=== PATIENT | male | born 1955 | race Caucasian/White ===

== ENCOUNTER 2017-11-23 08:28 | Emergency (ER) | payer MEDICAID, OTHER ==
[2017-11-23 08:29] VITALS: BMI 29.9
[2017-11-23 08:43] VITALS: TEMP 98.1
[2017-11-23] MEDS ORDERED: Sodium Chloride 0.9% 1,000 ML IV SCH (09:00)
[2017-11-23] MEDS ORDERED: Sodium Chloride 0.9% 1,000 ML ONE (09:09)
[2017-11-23 09:24] LABS: BASO # 0.1 K/uL (0.0-0.2); BASO % 1.1 % (0.0-2.0); EOS # 0.1 K/uL (0.0-0.7); EOS % 2.4 % (0.0-4.0); HEMOGLOBIN 14.4 g/dL (12.0-18.0); LYMPH # 0.9 K/uL (1.0-4.3); LYMPH % 17.4 % (20.0-40.0); MEAN CELL VOLUME 88.1 fL (80.0-94.0); MEAN CORPUSCULAR HEMOGLOBIN 30.5 pg (27.0-31.0); MEAN CORPUSCULAR HGB CONC 34.5 g/dL (33.0-37.0); MEAN PLATELET VOLUME 9.8 fL (7.2-11.7); MONO # 0.4 K/uL (0.0-0.8); MONO % 7.5 % (0.0-10.0); NEUT # 3.8 K/uL (1.8-7.0); NEUT % 71.6 % (50.0-75.0); RBC 4.73 Mil/uL (4.40-5.90); RED CELL DISTRIBUTION WIDTH 14.3 % (11.5-14.5); WHITE BLOOD COUNT 5.3 K/uL (4.8-10.8)
[2017-11-23 09:37] LABS: ALBUMIN 3.8 g/dL (3.5-5.0); ALT/SGPT 35 U/L (21-72); AST/SGOT 25 U/L (17-59); BLOOD UREA NITROGEN 14 mg/dL (9-20); CALCIUM 8.8 mg/dl (8.6-10.4); GFR AFRICAN-AMERICAN > 60; GFR NON-AFRICAN AMERICAN > 60; HDL CHOLESTEROL 26 mg/dL (30-70)
--- NOTE | 2017-11-23 09:38 | CT ---
Date of service: 11/23/2017 PROCEDURE: CT HEAD WITHOUT CONTRAST. HISTORY: dizzy COMPARISON: 02/15/2013 TECHNIQUE: Axial computed tomography images were obtained through the head/brain without intravenous contrast. Radiation dose: Total exam DLP = 832.72 mGy-cm. This CT exam was performed using one or more of the following dose reduction techniques: Automated exposure control, adjustment of the mA and/or kV according to patient size, and/or use of iterative reconstruction technique. FINDINGS: HEMORRHAGE: No intracranial hemorrhage. BRAIN: No mass effect or edema. There is moderate to severe chronic periventricular white matter lucency markedly increased in extent when compared to the prior examination. This is likely the result of microvascular white matter ischemic change. There is no evidence of acute infarct. VENTRICLES: Unremarkable. No hydrocephalus. CALVARIUM: Unremarkable. PARANASAL SINUSES: Unremarkable as visualized. No significant inflammatory changes. MASTOID AIR CELLS: Unremarkable as visualized. No inflammatory changes. OTHER FINDINGS: None. IMPRESSION: No intracranial mass, hemorrhage or evidence of acute infarct. Moderate to severe chronic white matter ischemic change significantly increased in extent when compared to the prior examination. Otherwise unremarkable.
[2017-11-23 09:50] LABS: LDL CHOLESTEROL 76 mg/dL (0-129)
--- NOTE | 2017-11-23 10:58 | C.PDOC ---
History Of Present Illness 62-year-old male,presents to the emergency department with complaints of dizziness, described as room spinning, that started one month ago. Symptoms became more severe over the pas few days, prompting visit. Patient notes associated nausea, and states dizziness worsens with head movement. He denies headache, ear pain, fever, vomiting, chills, chest pain or any other associated symptoms. No other complaints at this time. Time Seen by Provider: 11/23/17 08:36 Chief Complaint (Nursing): Dizziness/Lightheaded History Per: Patient History/Exam Limitations: no limitations Past Medical History Reviewed: Historical Data, Nursing Documentation, Vital Signs Vital Signs: Last Vital Signs Temp 98.1 F 11/23/17 08:41 Pulse 86 11/23/17 11:06 Resp 18 11/23/17 11:06 BP 128/85 11/23/17 11:06 Pulse Ox 98 11/23/17 11:06 Family History: States: No Known Family Hx - Social History Hx Tobacco Use: Yes Hx Alcohol Use: No Hx Substance Use: No - Immunization History Hx Tetanus Toxoid Vaccination: No Hx Influenza Vaccination: No Hx Pneumococcal Vaccination: No Review Of Systems Constitutional: Negative for: Fever, Chills Cardiovascular: Negative for: Chest Pain Respiratory: Negative for: Shortness of Breath Gastrointestinal: Positive for: Nausea. Negative for: Vomiting Neurological: Positive for: Dizziness. Negative for: Weakness, Numbness, Altered Mental Status, Headache Physical Exam - Physical Exam Appears: Non-toxic, No Acute Distress Skin: Normal Color, Warm, Dry, No Rash Head: Atraumatic, Normacephalic Eye(s): bilateral: Normal Inspection, PERRL, EOMI Nose: Normal Oral Mucosa: Moist Lips: Normal Appearing Neck: Normal ROM Cardiovascular: Rhythm Regular, No Murmur Respiratory: Normal Breath Sounds, No Accessory Muscle Use Gastrointestinal/Abdominal: Soft, No Tenderness Back: Normal Inspection Extremity: Normal ROM, No Deformity Neurological/Psych: Oriented x3, Normal Speech ED Course And Treatment - Laboratory Results Result Diagrams: 11/23/17 09:18 11/23/17 09:18 O2 Sat by Pulse Oximetry: 97 (RA) Pulse Ox Interpretation: Normal Disposition Counseled Patient/Family Regarding: Studies Performed, Need For Followup, Rx Given - Disposition Referrals: [facility] [Outside] Disposition: HOME/ ROUTINE Disposition Time: 10:55 Condition: STABLE Prescriptions: Meclizine [Antivert] 25 mg PO Q6 #30 tab Instructions: Vertigo (a Type of Dizziness) Forms: Gen Discharge Inst Indian, [employer] Connect (Indian), Work Excuse - POA Present On Arrival: None - Clinical Impression Clinical Impression: Dizziness - Scribe Statement The provider has reviewed the documentation as recorded by the Scribe (Sallie Ibanez) All medical record entries made by the Scribe were at my direction and personally dictated by me. I have reviewed the chart and agree that the record accurately reflects my personal performance of the history, physical exam, medical decision making, and the department course for this patient. I have also personally directed, reviewed, and agree with the discharge instructions and disposition.
[2017-11-23 11:06] VITALS: BP 128/85; PULSE 86; RESP 18
[2017-11-23 12:55] VITALS: O2SAT 97
--- NOTE | 2017-11-24 17:52 | CARD ---
APPROVED REPORT Date of service: 11/23/2017 EKG Measurement Heart [id number] <Conclusion> Normal sinus rhythm Normal ECG
== END 2017-11-23 11:07 | disposition home or self-care (01) ==
LOC: C.ER 08:28
DX: R42 Dizziness and giddiness (principal)
CPT/HCPCS: 70450; 80053; 80061; 82948; 84484; 85025; 93005; 99285; J7030

== ENCOUNTER 2018-06-03 14:23 | Emergency (ER) | payer MEDICAID ==
[2018-06-03 14:24] VITALS: BMI 29.9
[2018-06-03 14:39] VITALS: RESP 18; O2SAT 95
--- NOTE | 2018-06-03 15:50 | CT ---
Date of service: 06/03/2018 PROCEDURE: CT HEAD WITHOUT CONTRAST. HISTORY: Headache, dizziness. COMPARISON: Noncontrast head CT performed 11/23/17 TECHNIQUE: Axial computed tomography images were obtained through the head/brain without intravenous contrast. Radiation dose: Total exam DLP = 958.09 mGy-cm. This CT exam was performed using one or more of the following dose reduction techniques: Automated exposure control, adjustment of the mA and/or kV according to patient size, and/or use of iterative reconstruction technique. FINDINGS: HEMORRHAGE: No intracranial hemorrhage. BRAIN: No mass effect or edema. Moderate to severe scattered periventricular and subcortical white matter hypodensities, which are nonspecific, but often seen with chronic microvascular ischemic disease. Please note that MRI with diffusion imaging is more sensitive in the detection of acute ischemic event. VENTRICLES: No hydrocephalus. CALVARIUM: Unremarkable. PARANASAL SINUSES: Unremarkable as visualized. No significant inflammatory changes. MASTOID AIR CELLS: Unremarkable as visualized. No inflammatory changes. OTHER FINDINGS: None. IMPRESSION: Moderate to severe scattered periventricular and subcortical white matter hypodensities, which are nonspecific, but often seen with chronic microvascular ischemic disease.
--- NOTE | 2018-06-03 15:59 | C.PDOC ---
History Of Present Illness Pt c/o left sided headache that radiates to left posterior neck. Associated with dizziness. Time Seen by Provider: 06/03/18 14:41 Chief Complaint (Nursing): Headache History Per: Patient Onset/Duration Of Symptoms: Days (more than a month), Gradual Current Symptoms Are (Timing): Still Present Severity: Moderate Associated Symptoms: denies: Photophobia, Blurred Vision, Nausea, Vomiting, Extremity Weakness Additional History Per: Prior Records Past Medical History Reviewed: Historical Data, Nursing Documentation, Vital Signs Vital Signs: Last Vital Signs Temp 98 F 06/03/18 14:34 Pulse 64 06/03/18 14:34 Resp 18 06/03/18 14:34 BP 98/72 L 06/03/18 14:34 Pulse Ox 95 06/03/18 14:34 - Medical History PMH: No Chronic Diseases Family History: States: Unknown Family Hx - Social History Hx Tobacco Use: Yes Hx Alcohol Use: No Hx Substance Use: No - Immunization History Hx Tetanus Toxoid Vaccination: No Hx Influenza Vaccination: No Hx Pneumococcal Vaccination: No Review Of Systems Except As Marked, All Systems Reviewed And Found Negative. Constitutional: Negative for: Fever, Weakness Eyes: Negative for: Vision Change ENT: Negative for: Ear Pain, Ear Discharge, Nose Congestion, Throat Pain Cardiovascular: Negative for: Chest Pain Respiratory: Negative for: Shortness of Breath Gastrointestinal: Negative for: Nausea, Vomiting, Abdominal Pain Musculoskeletal: Positive for: Neck Pain. Negative for: Back Pain Skin: Negative for: Rash Neurological: Positive for: Headache, Dizziness. Negative for: Weakness, Numb ness, Change in Speech, Confusion, Seizures, Altered Mental Status Physical Exam - Physical Exam Appears: Non-toxic, No Acute Distress Skin: Normal Color, Warm, Dry, No Rash Head: Atraumatic, Normacephalic Eye(s): bilateral: PERRL, EOMI Ear(s): Bilateral: Normal Neck: Normal ROM, No Midline Cervical Tenderness, Paracervical Tenderness (left), No Step Off Deformity, Supple Cardiovascular: Rhythm Regular Respiratory: Normal Breath Sounds, No Accessory Muscle Use Gastrointestinal/Abdominal: Soft, No Tenderness Extremity: Normal ROM, No Deformity Pulses: Left Radial: Normal, Right Radial: Normal Neurological/Psych: Oriented x3, Normal Speech, Normal Cognition, Normal Cranial Nerves, No Cerebellar Signs, Normal Motor, Normal Sensation ED Course And Treatment O2 Sat by Pulse Oximetry: 95 Pulse Ox Interpretation: Normal - CT Scan/US CT head Other Rad Studies (CT/US): Read By Radiologist, Radiology Report Reviewed CT/US Interpretation: IMPRESSION: Moderate to severe scattered periventricular and subcortical white matter hypodensities, which are nonspecific, but often seen with chronic microvascular ischemic disease. Reassessment Condition: Improved Disposition Counseled Patient/Family Regarding: Studies Performed, Diagnosis, Need For F ollowup, Rx Given - Disposition Referrals: Ethan Conklin MD [Staff Provider] - Disposition: HOME/ ROUTINE Disposition Time: 16:00 Condition: STABLE Additional Instructions: Follow up with a Neurologist within 1-2 weeks for further evaluation and treatment. Return to the ER if you develop weakness, numbness, vomiting, worsening of symptoms or if you have any other concerns. Prescriptions: Meclizine [Meclizine*] 25 mg PO Q6 PRN #30 tab PRN Reason: Dizziness Instructions: Headache, Adult (DC) - Clinical Impression Clinical Impression: Headache, Dizziness, Subcortical microvascular ischemic occlusive disease
[2018-06-03 16:07] VITALS: BP 100/66; PULSE 58; TEMP 98.7
== END 2018-06-03 16:12 | disposition home or self-care (01) ==
LOC: C.ER 14:23
DX: R51 Headache (principal); R42 Dizziness and giddiness; I67.82 Cerebral ischemia

== ENCOUNTER 2018-07-13 11:51 | Emergency (ER) | payer MEDICAID ==
[2018-07-13 11:51] VITALS: BMI 29.9
[2018-07-13 12:04] VITALS: TEMP 98.3
[2018-07-13] MEDS ORDERED: Lidocaine 2% w Epi 1:200,000 Pf Inj INJ ONE (12:17)
[2018-07-13] MEDS ORDERED: Tetanus/Diphtheria Toxoids 0.5 ml Syringe IM ONE ×2 (12:17→13:53)
--- NOTE | 2018-07-13 12:17 | C.PDOC ---
History Of Present Illness 63 y/o male presents to the ED s/p fall just [facility]. States he slipped and fell, sustaining forehead laceration. Per family, patient is noncompliant with walker use. He slipped on ice and struck the edge of gate. Patient denies any LOC or syncope. He denies nausea, vomiting, dizziness, visual changes, severe headache, numbness or weakness. Patient currently at baseline behavior. No other associated injury. Time Seen by Provider: 07/13/18 12:15 Chief Complaint (Nursing): Abnormal Skin Integrity History Per: Patient History/Exam Limitations: no limitations Onset/Duration Of Symptoms: Mins Current Symptoms Are (Timing): Still Present Location Of Injury: Anterior: Head Past Medical History Reviewed: Historical Data, Nursing Documentation, Vital Signs Vital Signs: Last Vital Signs Temp 98.3 F 07/13/18 11:53 Pulse 76 07/13/18 11:53 Resp 16 07/13/18 11:53 BP 104/72 07/13/18 11:53 Pulse Ox 98 07/13/18 11:53 - Medical History PMH: HIV Family History: States: Unknown Family Hx - Social History Hx Tobacco Use: Yes Hx Alcohol Use: No Hx Substance Use: No - Immunization History Hx Tetanus Toxoid Vaccination: No Hx Influenza Vaccination: No Hx Pneumococcal Vaccination: No Review Of Systems Except As Marked, All Systems Reviewed And Found Negative. Constitutional: Negative for: Fever Eyes: Negative for: Vision Change Cardiovascular: Negative for: Chest Pain, Light Headedness Respiratory: Negative for: Shortness of Breath Gastrointestinal: Negative for: Nausea, Vomiting Musculoskeletal: Negative for: Neck Pain, Back Pain Skin: Positive for: Lesions (forehead laceration) Neurological: Positive for: Headache. Negative for: Weakness, Numbness, Change in Speech, Confusion, Altered Mental Status, Dizziness Physical Exam - Physical Exam Appears: Non-toxic, No Acute Distress Skin: Warm, Dry, No Rash Head: Normacephalic, Laceration (+ forehead laceration, with minimal active bleeding) Eye(s): bilateral: Normal Inspection, PERRL, EOMI Nose: Normal, No Deformity, No Tenderness Oral Mucosa: Moist Teeth: Normal Dentition, No Tender To Palpation, No Loose Neck: Normal ROM (full AROM without difficulty), No Midline Cervical Tenderness, Supple Chest: Symmetrical Cardiovascular: Rhythm Regular, No Murmur Respiratory: Normal Breath Sounds, No Accessory Muscle Use, Other (NARD) Extremity: Bilateral: Atraumatic, Normal Color And Temperature, Normal ROM Pulses: Left Radial: Normal, Right Radial: Normal Neurological/Psych: Oriented x3, Normal Speech, Normal Cognition, Normal Cranial Nerves, Other (No focal deficits) ED Course And Treatment O2 Sat by Pulse Oximetry: 98 (RA) Pulse Ox Interpretation: Normal Laceration - Laceration Repair forehead Wound Length (In cm): 3 Description Of Wound: Linear Wound Cleansed With: Betadine, Sterile Saline Anesthesia: Lidocaine 2%, With Epi Wound Examination: Irrigated With Saline Wound Closure: Suture (9) Suture Technique And Material Used: Nylon (3.0) Wound Complexity: Simple Medical Decision Making Medical Decision Making: Impression: Laceration to forehead, s/p fall Plan: - Tetanus booster updated - Lido ordered for laceration repair Disposition Counseled Patient/Family Regarding: Diagnosis, Need For Followup - Disposition Referrals: [facility] [Provider Group] Disposition: HOME/ ROUTINE Disposition Time: 13:26 Condition: IMPROVED Additional Instructions: return 7-10 days for suture removal Instructions: Laceration Repair With Stitches (DC) Forms: [employer] Connect (Croatian) - Clinical Impression Clinical Impression: Forehead laceration - Scribe Statement The provider has reviewed the documentation as recorded by the Misael Guerrero Provider Attestation: All medical record entries made by the Scribe were at my direction and personally dictated by me. I have reviewed the chart and agree that the record accurately reflects my personal performance of the history, physical exam, medical decision making, and the department course for this patient. I have also personally directed, reviewed, and agree with the discharge instructions and disposition.
[2018-07-13 13:55] VITALS: BP 109/57; PULSE 98; RESP 18; O2SAT 96
== END 2018-07-13 13:55 | disposition home or self-care (01) ==
LOC: C.ER 11:51
DX: S01.81XA Laceration without foreign body of other part of head, initial encounter (principal); W00.0XXA Fall on same level due to ice and snow, initial encounter; Z72.0 Tobacco use; Z23 Encounter for immunization